=== PATIENT | female | born 1975 | race Caucasian/White ===

== ENCOUNTER 2020-02-13 15:02 | Emergency (ER) | payer OTHER ==
[~2020-02-13] VITALS: Ht 157.5 cm; Wt 71.4 kg
[2020-02-13 16:53] LABS: BASO % 0.6 % (0.0-1.0); EOS # 0.1 10^3/uL (0.0-0.5); EOS % 2.1 % (0.0-3.0); HEMOGLOBIN 14.1 g/dl (12.0-15.5); LYMPH # 2.6 10^3/uL (1.5-5.0); LYMPH % 38.7 % (24.0-44.0); MEAN CORPUSCULAR HEMOGLOBIN 29.4 pg (27.0-33.0); MEAN CORPUSCULAR HGB CONC 33.6 g/dl (32.0-36.5); MEAN CORPUSCULAR VOLUME 87.7 fl (80.0-96.0); MONO # 0.4 10^3/uL (0.0-0.8); MONO % 5.9 % (0.0-5.0); NEUTROPHILS # 3.5 10^3/uL (1.5-8.5); NEUTROPHILS % 52.4 % (36.0-66.0); PLATELET COUNT, AUTOMATED 236 10^3/uL (150-450); RED BLOOD COUNT 4.79 10^6/uL (4.00-5.40); WHITE BLOOD COUNT 6.6 10^3/uL (4.0-10.0)
[2020-02-13 17:18] LABS: ALT/SGPT 24 U/L (12-78); BILIRUBIN,DIRECT < 0.1 MG/DL (0.0-0.2); BILIRUBIN,TOTAL 0.3 MG/DL (0.2-1.0); LIPASE 88 U/L (73-393); TOTAL PROTEIN 7.2 GM/DL (6.4-8.2)
--- NOTE | 2020-02-13 17:38 | REPVR ---
PROCEDURE INFORMATION: Exam: US Abdomen, Limited; Right Upper Quadrant Exam date and time: 02/13/2020 5:10 PM Age: 45 years old Clinical indication: Abdominal pain; Epigastric; Additional info: Ruq pain TECHNIQUE: Imaging protocol: US abdomen. Real time ultrasound with image documentation. Limited exam focused on the right upper quadrant. COMPARISON: No relevant prior studies available. FINDINGS: Liver: Normal. No masses. Gallbladder: The gallbladder wall measures 2.9 mm. No gallstones. Common bile duct: The common bile duct measures 3.4 mm. No ductal calculi as visualized. Pancreas: Unremarkable pancreas. Right kidney: The right kidney measures 10.6 x 4.7 x 5.7 cm. Unremarkable. A brief color Doppler examination of the right kidney was performed showing normal color shifts. IMPRESSION: No acute right upper quadrant abnormality identified. Electronically signed by: Sonny Jorge On 02/13/2020 17:38:35 PM
[2020-02-13] MEDS ORDERED: ISOVUE-370 76% 100ML VIAL As Ordered ONE ×2 (18:18→20:56)
[2020-02-13] MEDS ORDERED: OMEP40CA97 PO (19:02)
[2020-02-13 19:11] VITALS: BP 140/86
== END 2020-02-13 19:14 | disposition home or self-care (01) ==
LOC: M ED 15:02
DX: R10.10 Upper abdominal pain, unspecified (principal); R42 Dizziness and giddiness; Z97.5 Presence of (intrauterine) contraceptive device
CPT/HCPCS: 36415; 76705; 80047; 80076; 83690; 84702; 85025; 99284; Q9967